=== PATIENT | male | born 1940 | race Caucasian/White ===

== ENCOUNTER 2017-03-07 15:56 | Emergency (ER) | payer MEDICARE, OTHER ==
[~2017-03-07] VITALS: Ht 165.1 cm; Wt 88.0 kg
[~2017-03-07 15:56] MED LIST: CEPH500C3 PO; COMBAER INH; DIGO0.12 PO; FURO20TA PO; KCL10C PO; LOSA25TA31 PO; NEBI5 PO; TYLE3 PO; WARF-60 PO; [UNRECOGNIZED DRUG - CODE] PO
[2017-03-07 16:01] VITALS: BP 114/71; PULSE 60; RESP 14; TEMP 97.7; O2SAT 96
[2017-03-07] MEDS ORDERED: POTA-88 PO (16:41)
[2017-03-07] MEDS ORDERED: IPRAAER INH (16:41)
[2017-03-07] MEDS ORDERED: SYMB80AE INH (16:41)
[2017-03-07] MEDS ORDERED: TAZT240C PO (16:41)
[2017-03-07] MEDS ORDERED: WARF-60 PO (16:41)
[2017-03-07] MEDS ORDERED: FURO20TA PO (16:41)
[2017-03-07] MEDS ORDERED: SACU1TAB4 PO (16:41)
[2017-03-07] MEDS ORDERED: DIGO0.12 PO (16:41)
--- NOTE | 2017-03-07 16:44 | PD ---
HPI Chief Complaint: Abnormal Results Time Seen by Provider: 16:26 Travel History International Travel<30 days: No Contact w/Intl Traveler<30days: No Traveled to known affect area: No History of Present Illness HPI 76yo M with PMH of CHF, afib on coumadin and digoxin was sent here because of elevated digoxin level from routine blood work yesterday. Pt went to PMD yesterday and had blood work drawn. Pt denies any fever, chest pain, sob, n/v, abdominal pain, focal weakness or numbness. PFSH Past Medical History Atrial Fibrillation: Yes Blood Disorders: No Depression: Yes Cancer: No Cardiovascular Problems: Yes (A-FIB) Chest Pain: No Congestive Heart Failure: Yes COPD: Yes Diabetes: No Endocrine: No Gastrointestinal Disorders: No Glaucoma: No Genitourinary: No Hepatitis: No Hiatal Hernia: No Hypertension: Yes Immune Disorder: No Implanted Vascular Access Dvce: No Musculoskeletal: No Psychiatric: Yes Reproductive: No Respiratory: Yes (COPD) Integumentary: No Thyroid Disease: No Past Surgical History Cardiac Surgery: Yes (pacer) Pacemaker: Yes Other Surgery: No Social History Alcohol Use: No Tobacco Use: No Substance Use: No Allergies-Medications (Allergen,Severity, Reaction): Coded Allergies: Sulfa (Verified Allergy, Intermediate, 08/12/13) PT STATES NOT ALLERGIC Reported Meds & Prescriptions Reported Meds & Active Scripts Active Reported Symbicort Inh (Budesonide/Formoterol Fumarate) 80-4.5 Mcg/Act Aero 2 Puff INH Q12HR Entresto (Sacubitril-Valsartan) 97-103 Mg Tab 1 Tab PO DAILY Digoxin 0.125 Mg Tab 0.125 Mg PO DAILY Furosemide 20 Mg Tab 20 Mg PO BID Klor-Con M10 (Potassium Chloride Microencaps) 10 Meq Tab 10 Meq PO Q12HR Warfarin 6 Mg Tab 6 Mg PO DAILY Taztia Xt (Diltiazem ER 24 HR) 240 Mg Caper 360 Mg PO DAILY Review of Systems Except as stated in HPI: all other systems reviewed are Neg Physical Exam Narrative GENERAL: 76yo M not in distress. SKIN: Focused skin assessment warm/dry. HEAD: Atraumatic. Normocephalic. EYES: Pupils equal and round. No scleral icterus. No injection or drainage. ENT: No nasal bleeding or discharge. Mucous membranes pink and moist. NECK: Trachea midline. No JVD. CARDIOVASCULAR: Regular rate and rhythm. No murmur appreciated. RESPIRATORY: No accessory muscle use. Clear to auscultation. Breath sounds equal bilaterally. GASTROINTESTINAL: Abdomen soft, non-tender, nondistended. MUSCULOSKELETAL: No obvious deformities. No clubbing. No cyanosis. No edema. NEUROLOGICAL: Awake and alert. No obvious cranial nerve deficits. Motor grossly within normal limits. Normal speech. PSYCHIATRIC: Appropriate mood and affect; insight and judgment normal. Data Data Last Documented VS Vital Signs Date Time Temp Pulse Resp B/P Pulse Ox O2 Delivery O2 Flow Rate FiO2 03/07/17 16:01 97.7 60 14 114/71 96 Room Air Orders Complete Blood Count With Diff (03/07/17 16:34) Basic Metabolic Panel (Bmp) (03/07/17 16:34) Prothrombin Time / Inr (Pt) (03/07/17 16:34) Act Partial Throm Time (Ptt) (03/07/17 16:34) Digoxin (03/07/17 16:34) Electrocardiogram (03/07/17 ) Labs Laboratory Tests Test 03/07/17 17:02 White Blood Count 8.8 TH/MM3 Red Blood Count 4.78 MIL/MM3 Hemoglobin 14.7 GM/DL Hematocrit 43.6 % Mean Corpuscular Volume 91.2 FL Mean Corpuscular Hemoglobin 30.8 PG Mean Corpuscular Hemoglobin 33.8 % Concent Red Cell Distribution Width 12.5 % Platelet Count 203 TH/MM3 Mean Platelet Volume 8.1 FL Neutrophils (%) (Auto) 67.5 % Lymphocytes (%) (Auto) 21.0 % Monocytes (%) (Auto) 8.9 % Eosinophils (%) (Auto) 2.1 % Basophils (%) (Auto) 0.5 % Neutrophils # (Auto) 5.9 TH/MM3 Lymphocytes # (Auto) 1.9 TH/MM3 Monocytes # (Auto) 0.8 TH/MM3 Eosinophils # (Auto) 0.2 TH/MM3 Basophils # (Auto) 0.0 TH/MM3 CBC Comment DIFF FINAL Differential Comment Prothrombin Time 28.2 SEC Prothromb Time International 2.5 RATIO Ratio Activated Partial 38.1 SEC Thromboplast Time Sodium Level 139 MEQ/L Potassium Level 3.8 MEQ/L Chloride Level 103 MEQ/L Carbon Dioxide Level 28.8 MEQ/L Anion Gap 7 MEQ/L Blood Urea Nitrogen 27 MG/DL Creatinine 1.60 MG/DL Estimat Glomerular Filtration 42 ML/MIN Rate Random Glucose 96 MG/DL Calcium Level 8.1 MG/DL Digoxin Level 0.9 NG/ML MDM Medical Decision Making Medical Screen Exam Complete: Yes Emergency Medical Condition: Yes Interpretation(s) EKG: Paced rhythm. LAD. No concordance. Differential Diagnosis Digoxin toxicity vs. lab error Narrative Course 76yo M was referred to the ED after yesterday's digoxin level was found to be elevated. Pt is asymptomatic otherwise. Labs reviewed, no leukocytosis. BUN/ creatinine mildly elevated from baseline at 27/1.6. Informed pt and he states that his PMD knows about this and is following. INR therapeutic at 2.5. Digoxin level is therapeutic at 0.9. Pt has no complaints. Elevated digoxin level may be secondary to lab error. Return precautions given. Diagnosis Primary Impression: Routine check-up Patient Instructions: General Instructions Departure Forms: Tests/Procedures Additional Instructions: Please follow up with your PMD in 3-7 days. Return to the ED if symptoms. Med/Other Pt SpecificInfo: No Change to Meds Disposition: 01 DISCHARGE HOME Condition: Stable Marylin Hankins DO Mar 07, 2017 16:44
[2017-03-07 17:09] LABS: AUTOMATED NEUTROPHIL # 5.9 TH/MM3 (1.8-7.7); BASOPHIL % 0.5 % (0.0-2.0); EOSINOPHIL # 0.2 TH/MM3 (0-0.4); EOSINOPHIL % 2.1 % (0.0-4.0); HEMATOCRIT 43.6 % (39.0-51.0); HEMO FLAGS DIFF FINAL; LYMPHOCYTE # 1.9 TH/MM3 (1.0-4.8); MEAN CELL VOLUME 91.2 FL (80.0-100.0); MEAN CORPUSCULAR HEMOGLOBIN 30.8 PG (27.0-34.0); MEAN CORPUSCULAR HGB CONC 33.8 % (32.0-36.0); MONO % 8.9 % (0.0-8.0); NEUT % 67.5 % (16.0-70.0); PLATELET COUNT 203 TH/MM3 (150-450); RED BLOOD COUNT 4.78 MIL/MM3 (4.50-5.90); RED CELL DISTRIBUTION WIDTH 12.5 % (11.6-17.2); WHITE BLOOD COUNT 8.8 TH/MM3 (4.0-11.0)
[2017-03-07 17:19] LABS: POTASSIUM 3.8 MEQ/L (3.5-5.1)
[2017-03-07 17:23] LABS: BICARBONATE 28.8 MEQ/L (21.0-32.0)
[2017-03-07 17:25] LABS: APTT (PATIENT) 38.1 SEC (24.3-30.1); INTERNATIONAL NORMALIZED RATIO 2.5 RATIO; PROTHROMBIN TIME - PATIENT 28.2 SEC (9.8-11.6)
[2017-03-07 17:41] LABS: DIGOXIN 0.9 NG/ML (0.8-2.0)
--- NOTE | 2017-03-09 11:06 | EKG ---
Date Performed: 03/07/2017 Time Performed: 16:48:20 PTAGE: 76 years EKG: ELECTRONIC VENTRICULAR PACEMAKER ABNORMAL RHYTHM ECG PREVIOUS TRACING : 08/12/2013 12.26 DOCTOR: Archie Vail Interpretating Date/Time 03/09/2017 10:57:42
== END 2017-03-07 18:27 | disposition home or self-care (01) ==
LOC: PHED 15:56
DX: I11.0 Hypertensive heart disease with heart failure (principal); I48.91 Unspecified atrial fibrillation; Z79.01 Long term (current) use of anticoagulants; Z79.899 Other long term (current) drug therapy
CPT/HCPCS: 80048; 80162; 85025; 85610; 85730; 93005